=== PATIENT | female | born 1980 | race African-American/Black ===

== ENCOUNTER 2016-08-02 07:45 | Outpatient (CLI) | payer BC ==
[2016-08-02 10:17] LABS: #Basophils 0.1 thou/uL (0.0-0.2); #Eosinphils 0.2 thou/uL (0.0-0.7); #Lymphocytes 3.4 thou/uL (1.20-3.40); #Monocytes 0.5 thou/uL (0.11-0.59); #Neutrophils 3.4 thou/uL (1.40-6.50); %Eosinophils 2.4 % (0.0-10.0); %Lymphocytes 44.8 % (21.0-51.0); %Monocytes 6.7 % (0.0-10.0); Hematocrit 43.4 % (36.0-47.0); Mean Platelet Volume 6.7 fL (7.4-10.4); Red Blood Cell (RBC) Count 4.64 mill/uL (4.20-5.40); White Blood Cell (WBC) Count 7.5 thou/uL (4.8-10.8)
[2016-08-02 10:30] LABS: Hemoglobin A1c 5.3 % (4.0-6.0)
[2016-08-02 10:32] LABS: ALT (SGPT) 18 U/L (0-55); AST (SGOT) 19 U/L (5-34); Alkaline Phosphatase 69 U/L (40-150); Anion Gap 18 mmol/L (10-20); BUN (Urea Nitrogen) 8 mg/dL (7.0-18.7); Bilirubin, Total 0.4 mg/dL (0.2-1.2); Calc. Creatinine Clearance 0 mL/min (70-130); Calcium 9.3 mg/dL (7.8-10.44); Carbon Dioxide 23 mmol/L (22-29); Chloride 103 mmol/L (98-107); Estimated GFR-MDRD Greater than 90; Globulin 3.3 g/dL (2.4-3.5); LDL Cholesterol, Calculated 167 mg/dL; Protein, Total 7.3 g/dL (6.0-8.3)
== END 2016-08-02 07:46 | disposition home or self-care (01) ==
LOC: NAV LAB 07:45
PROVIDERS: ATTEND Family Medicine
DX: Z00.00 Encounter for general adult medical examination without abnormal findings (principal)
CPT/HCPCS: 36415; 80053; 80061; 82306; 83036; 84439; 84443; 85025

== ENCOUNTER 2016-12-17 02:05 | Emergency (ER) | payer BC ==
[2016-12-17] MEDS ORDERED: Acetaminophen/Codeine 30-300mg Tablet ONE (02:57)
--- NOTE | 2016-12-17 08:52 | RAD ---
RADIOGRAPH RIGHT WRIST 3 VIEWS: HISTORY: A 36-year-old female status post acute traumatic injury with pain. FINDINGS: Ulna plus. Mild angulated sloping of the distal radial articular surface. No dislocation. No acut e fracture. Mild degenerative changes at DRUJ. The rest of the wrist joints demonstrate no signifi cant arthritic changes. IMPRESSION: 1. No acute fracture. 2. Ulnar positive variance. 3. Mild [place]el[place] deformity. POS: [facility]
== END 2016-12-17 03:04 | disposition home or self-care (01) ==
LOC: NAV ERS 02:05
DX: S60.221A Contusion of right hand, initial encounter (principal); S50.11XA Contusion of right forearm, initial encounter; K21.9 Gastro-esophageal reflux disease without esophagitis; E78.5 Hyperlipidemia, unspecified; Z79.899 Other long term (current) drug therapy; W01.0XXA Fall on same level from slipping, tripping and stumbling without subsequent striking against object, initial encounter
CPT/HCPCS: 29125

== ENCOUNTER 2017-09-29 08:33 | Emergency (ER) | payer BC ==
[2017-09-29] MEDS ORDERED: Ondansetron ODT 4 MG TAB ONE (08:54)
[2017-09-29] MEDS ORDERED: Penicillin V Potassium 250 MG TAB ONE (09:41)
== END 2017-09-29 09:45 | disposition home or self-care (01) ==
LOC: NAV ERS 08:33
DX: J02.0 Streptococcal pharyngitis (principal); K21.9 Gastro-esophageal reflux disease without esophagitis; E78.5 Hyperlipidemia, unspecified; Z79.899 Other long term (current) drug therapy
CPT/HCPCS: 87081; 87430; 87804; 94760; Q0162

== ENCOUNTER 2017-11-28 07:09 | Emergency (ER) | payer BC, OTHER | END 2017-11-28 08:15 | disposition home or self-care (01) | LOC: NAV ERS 07:09 | DX: Z20.1 Contact with and (suspected) exposure to tuberculosis (principal); K21.9 Gastro-esophageal reflux disease without esophagitis; E78.5 Hyperlipidemia, unspecified; Z79.899 Other long term (current) drug therapy | CPT/HCPCS: 99283 ==

== ENCOUNTER 2021-03-02 15:25 | Outpatient (CLI) | payer BC | END 2021-03-02 15:26 | disposition home or self-care (01) | LOC: NAV RAD 15:25 | PROVIDERS: ATTEND Nurse Practitioner Family | DX: M54.50 Low back pain, unspecified (principal); M47.816 Spondylosis without myelopathy or radiculopathy, lumbar region | CPT/HCPCS: 72100 ==

== ENCOUNTER 2025-02-15 09:30 | Emergency (ER) | payer BC ==
[2025-02-15] MEDS ORDERED: Mag-Al Plus 1200/1200/120 MG (30 mL) UDCUP ONE (10:20)
[2025-02-15] MEDS ORDERED: Lidocaine Viscous Sol 2% 15 ml UD Cup ONE (10:20)
== END 2025-02-15 11:24 | disposition home or self-care (01) ==
LOC: NAV ERS 09:30
DX: J02.9 Acute pharyngitis, unspecified (principal); E78.5 Hyperlipidemia, unspecified; K21.9 Gastro-esophageal reflux disease without esophagitis; Z79.899 Other long term (current) drug therapy
CPT/HCPCS: 87081; 87426; 87430; 99283